=== PATIENT | male | born 1985 | race African-American/Black ===

== ENCOUNTER 2020-07-12 17:35 | Emergency (ER) | payer BC ==
[~2020-07-12] VITALS: Ht 185.4 cm; Wt 95.3 kg
[2020-07-12 17:53] VITALS: BP 126/80
== END 2020-07-12 19:58 | disposition home or self-care (01) ==
LOC: ER 17:35
DX: J06.9 Acute upper respiratory infection, unspecified (principal); Z20.828 Contact with and (suspected) exposure to other viral communicable diseases; R19.7 Diarrhea, unspecified